=== PATIENT | female | born 1980 | race Caucasian/White ===

== ENCOUNTER 2022-06-05 06:41 | Emergency (ER) | payer SELFPAY ==
[~2022-06-05] VITALS: Ht 170.2 cm; Wt 84.1 kg
[~2022-06-05 06:41] MED LIST: PRENATAL VITAMI1 TA5 PO
[2022-06-05 06:42] VITALS: TEMP 98.7
[2022-06-05] MEDS ORDERED: TRELEGY ELLIPT1 EACH IH (07:01)
[2022-06-05] MEDS ORDERED: PAXIL 20MG20 MG PO (07:01)
[2022-06-05] MEDS ORDERED: SINGULAIR 110 MG/TAB PO (07:02)
[2022-06-05] MEDS ORDERED: PROVENTIL0.09 MG/A1 IH (07:02)
[2022-06-05 08:02] VITALS: BP 120/81; PULSE 63
== END 2022-06-05 08:02 | disposition home or self-care (01) ==
LOC: COL.ER 06:41
DX: S20.302A Unspecified superficial injuries of left front wall of thorax, initial encounter (principal); M25.512 Pain in left shoulder; V43.62XA Car passenger injured in collision with other type car in traffic accident, initial encounter; Y92.410 Unspecified street and highway as the place of occurrence of the external cause